=== PATIENT | male | born 1970 ===

== ENCOUNTER 2019-01-07 19:05 | Emergency (ER) | payer SELFPAY ==
[2019-01-07] MEDS ORDERED: Dexamethasone 4 mg/1 ml IVP STA (20:37)
[2019-01-07] MEDS ORDERED: Sodium Chloride 0.9% 1,000 ML IV STA (20:37)
[2019-01-07] MEDS ORDERED: Dexamethasone 4 mg/1 ml ONE (20:53)
--- NOTE | 2019-01-07 20:58 | ED PDOC ---
History of Present Illness History of Present Illness: 48 y/o male with no significant PMHx presents to the ED for evaluation of a sore throat, onset two days ago. Patient reports sore throat is associated with fever, body aches, nausea, vomiting, changes in voice, abdominal discomfort, decreased appetite and decreased PO intake. Patient reports of having one episode of non-bloody, no-bilious vomiting at 10 AM today. Patient notes of last taking Tylenol at 12 PM this afternoon. Patient describes abdominal discomfort as cramping. Otherwise, patient denies rhinorrhea, coughing and diarrhea. PMD: no provider HPI: Influenza Time Seen by Provider: 01/07/19 20:25 Chief Complaint: Abdominal Pain Chief Complaint (Provider): Throat Pain History Per: Patient Exam Limitations: no limitations Onset/Duration Of Symptoms: Days Past Medical History Reviewed: Historical Data, Nursing Documentation, Vital Signs Vital Signs: Last Vital Signs Temp 103.1 F H 01/07/19 19:55 Pulse 131 H 01/07/19 19:55 Resp 16 01/07/19 19:55 BP 125/76 01/07/19 19:55 Pulse Ox 96 01/07/19 19:55 Primary Care Provider: FAMILY PROVIDER,NO - Medical History PMH: No Chronic Diseases - Surgical History Surgical History: No Surg Hx - Family History Family History: States: No Known Family Hx - Social History Current smoker - smoking cessation education provided: No - Home Medications Home Medications: Ambulatory Orders Medication Instructions Recorded Acetaminophen [Tylenol Extra 1,000 mg PO Q6 PRN #100 tablet 01/07/19 Strength] Amoxicillin/Clavulanate [Augmentin 1 tab PO BID #14 tab 01/07/19 875 MG-125 MG] Ibuprofen [Motrin Tab] 600 mg PO Q8 PRN #30 tab 01/07/19 Ondansetron ODT [Zofran ODT] 1 odt PO Q6 PRN #20 odt 01/07/19 Prednisone 50 mg PO DAILY #2 tablet 01/07/19 - Allergies Allergies/Adverse Reactions: Allergies Allergy/AdvReac Type Severity Reaction Status Date / Time No Known Allergies Allergy Verified 01/07/19 19:54 Review of Systems ROS Statement: Except As Marked, All Systems Reviewed And Found Negative (as per HPI) Constitutional: Positive for: Fever, Other (myalgia) ENT: Positive for: Throat Pain, Other (changes in voice). Negative for: Nose Discharge Respiratory: Negative for: Cough Gastrointestinal: Positive for: Nausea, Vomiting, Abdominal Pain, Other (decreased appetite and decreased PO intake). Negative for: Diarrhea Physical Exam - Reviewed Nursing Documentation Reviewed: Yes Vital Signs Reviewed: Yes - Physical Exam Appears: Positive for: In Acute Distress (mild painfuyl distress) Head Exam: Positive for: ATRAUMATIC, NORMOCEPHALIC Skin: Positive for: Warm, Dry Eye Exam: Positive for: EOMI, PERRL ENT: Positive for: Tonsillar Exudate, Tonsillar Swelling (Bilateral enlarged kissing tonsills. ), Other (Uvula midline. No soft palate swelling, no abscess, no peritonsillar swelling). Negative for: Moist Mucous Membranes (dry mucous membrane) Neck: Positive for: Painless ROM, Supple Cardiovascular/Chest: Positive for: Tachycardia (with regular rhythm) Respiratory: Positive for: Normal Breath Sounds. Negative for: Respiratory Distress Gastrointestinal/Abdominal: Positive for: Tenderness (mild diffuse unlocalizable tenderness to palpation). Negative for: Mass, Guarding, Rebound Back: Positive for: Normal Inspection. Negative for: Decreased ROM Extremity: Positive for: Normal ROM. Negative for: Deformity Lymphatic: Positive for: Adenopathy (bilateral submandibular lymphadenopathy) Neurological/Psych: Positive for: Awake, Alert. Negative for: Motor/Sensory Deficits Medical Decision Making Medical Decision Making: Time: 2101 Impression: Tonsillitis Differentials include but not limited to sepsis and dehydration Plan: -- CMP -- Lact Acid, Plasma -- CBC with Differentials -- Decadron Inj 10 mg IVP -- Motrin 600 mg PO -- Sodium Chloride IV 1000 mls/hr -- Tylenol 975 mg PO -- Unasyn 3 gm Sodium Chloride 0.9% 100 ml IVPB -- Zofran Inj 4 mg IVP -- Blood Culture -- IV Insertion -- Rapid Strep Group A Antigen Labs c/w acute strep tonsillitis, early sepsis but not severe or shock. He is otherwise healthy and tolerating PO. Pt stable for outpatient management and followup. -- Scribe Attestation: Documented by Myriam Encinas, acting as a scribe Laura Valladares MD. Provider Scribe Attestation: All medical record entries made by the Scribe were at my direction and personally dictated by me. I have reviewed the chart and agree that the record accurately reflects my personal performance of the history, physical exam, medical decision making, and the department course for this patient. I have also personally directed, reviewed, and agree with the discharge instructions and disposition. - Laboratory Results Result Diagrams: 01/07/19 20:59 01/07/19 20:59 - ECG O2 Sat by Pulse Oximetry: 96 Disposition - Clinical Impression Clinical Impression: Strep tonsillitis Counseled Patient/Family Regarding: Studies Performed, Diagnosis, Need For Followup, Rx Given - Disposition Referrals: [facility] [Outside] (FOLLOWUP WITH YOUR DOCTOR IN 2-3 DAYS) Disposition: Routine/Home Disposition Time: 22:03 Condition: STABLE Prescriptions: Acetaminophen [Tylenol Extra Strength] 1,000 mg PO Q6 PRN #100 tablet PRN Reason: FEVER OR PAIN Amoxicillin/Clavulanate [Augmentin 875 MG-125 MG] 1 tab PO BID #14 tab Ibuprofen [Motrin Tab] 600 mg PO Q8 PRN #30 tab PRN Reason: pain or fever Ondansetron ODT [Zofran ODT] 1 odt PO Q6 PRN #20 odt PRN Reason: Nausea/Vomiting Prednisone 50 mg PO DAILY #2 tablet Instructions: Strep Throat (DC) Forms: [facility] ED School/Work Excuse Print Language: WOLOF
[2019-01-07 21:39] LABS: BASO % 0.3 % (0.0-2.0); LYMPH # 1.4 K/uL (1.0-4.3); LYMPH % 7.7 % (20.0-40.0); MEAN CELL VOLUME 90.8 fl (80.0-94.0); MEAN CORPUSCULAR HEMOGLOBIN 31.5 pg (27.0-31.0); MEAN CORPUSCULAR HGB CONC 34.7 g/dL (33.0-37.0); MEAN PLATELET VOLUME 8.2 fl (7.2-11.7); MONO % 5.7 % (0.0-10.0); NEUT # 15.1 K/uL (1.8-7.0); NEUT % 86.3 % (50.0-75.0); PLATELET COUNT 179 K/uL (130-400); RBC 4.76 Mil/uL (4.40-5.90); RED CELL DISTRIBUTION WIDTH 12.9 % (11.5-14.5); WHITE BLOOD COUNT 17.5 K/uL (4.8-10.8)
[2019-01-07 21:44] LABS: BLOOD UREA NITROGEN 11 mg/dl (9-20); CALCIUM 8.4 mg/dL (8.4-10.2); GFR NON-AFRICAN AMERICAN > 60
[2019-01-07 21:47] LABS: ALB/GLOB RATIO 1.1 (1.0-2.1); ALBUMIN 4.5 g/dL (3.5-5.0); ALT/SGPT 63 U/L (21-72); AST/SGOT 85 U/L (17-59)
[2019-01-07 22:08] VITALS: RESP 18
[2019-01-07 22:31] LABS: BANDS 1 % (0-2); LYMPHOCYTE 8 % (20-50); MONOCYTE 4 % (0-10); NEUTROPHIL 87 % (42-75); PLATELET ESTIMATE NORMAL (NORMAL); TOTAL CELLS COUNTED 100
[2019-01-08 00:22] VITALS: BP 129/66; PULSE 97; TEMP 98.6
[2019-01-08 15:28] VITALS: O2SAT 96
== END 2019-01-08 00:23 | disposition home or self-care (01) ==
LOC: H.ER 19:05
DX: J03.00 Acute streptococcal tonsillitis, unspecified (principal)
CPT/HCPCS: 80053; 83605; 85025; 87040; 87430; 96361; 96365; 96366; 96375; 99283; J0295; J1100; J2405; J7030